=== PATIENT | female | born 1985 | race Caucasian/White ===

== ENCOUNTER → 2017-12-09 | Emergency (ER) | payer OTHER ==
[~2017-12-09] VITALS: Ht 152.4 cm; Wt 63.5 kg
[~2017-12-09] MED LIST: LEVAQUIN750 MG PO; NASONEX17 GM NASAL; PHENAGIL TABLE1 EACH PO; PHENERGAN25 MG PO; ZANTAC300 MG PO
== END | disposition home or self-care (01) ==
LOC: ER 22:52
DX: K29.70 Gastritis, unspecified, without bleeding (principal)